=== PATIENT | female | born 1985 | race Caucasian/White ===

== ENCOUNTER 2022-07-24 12:11 | Emergency (ER) | payer OTHER ==
[~2022-07-24] VITALS: Ht 157.5 cm; Wt 59.1 kg
[2022-07-24] MEDS ORDERED: SODIUM CHLORIDE 0.9% 1,000 ML IV ONE (12:45)
[2022-07-24 12:58] LABS: BASOPHILS % (AUTO) 0.7 % (0.0-2.0); EOSINOPHILS % (AUTO) 3.6 % (1.0-6.0); HEMATOCRIT 40.7 % (36-46); HEMOGLOBIN 13.3 g/dL (12.0-16.0); LYMPHOCYTES # (AUTO) 1.6 K/uL (1.0-4.8); LYMPHOCYTES % (AUTO) 34.5 % (22.0-44.0); MEAN CORPUSCULAR HEMOGLOBIN 31.3 pg (26.0-34.0); MEAN CORPUSCULAR HGB CONC 32.8 G/dL (31.0-37.0); MEAN CORPUSCULAR VOLUME 96 fL (80-100); MONOCYTES # (AUTO) 0.3 K/uL (0.1-1.0); MONOCYTES % (AUTO) 6.4 % (2.0-9.0); NEUTROPHILS # (AUTO) 2.5 K/uL (1.8-7.7); NEUTROPHILS % (AUTO) 54.8 % (40.0-70.0); PLATELET COUNT (AUTO) 182 K/uL (150-450); RED BLOOD CELL COUNT(AUTO) 4.27 MIL/uL (4.00-5.20); RED CELL DISTRIBUTION WIDTH 12.8 % (11.5-14.5)
[2022-07-24 13:15] LABS: ANION GAP 4 mmol/L (8-16); CALCIUM, TOTAL 8.9 mg/dL (8.8-10.5); CARBON DIOXIDE 29 mmol/L (22-29); CHLORIDE 105 mmol/L (98-107); CREATININE 0.68 mg/dL (0.60-1.30); GLUCOSE,RANDOM 118 mg/dL (70-110); POTASSIUM 3.4 mmol/L (3.5-5.1); SODIUM SERUM 138 mmol/L (136-145); UREA NITROGEN, BLOOD 9 mg/dL (7-18)
[2022-07-24 13:21] LABS: ALANINE AMINOTRANSFERASE 17 U/L (12-78); ALBUMIN 3.2 g/dL (3.4-5.0); ALKALINE PHOSPHATASE 63 U/L (46-116); ASPARTATE AMINOTRANSFERASE 15 U/L (15-37); BILIRUBIN,TOTAL 0.4 mg/dL (0.1-1.0); TOTAL PROTEIN, SERUM 6.9 g/dL (6.4-8.2)
[2022-07-24 13:22] LABS: GLOMERULAR FILTR. RATE CALC > 60 mL/min (>60)
[2022-07-24 14:21] LABS: COVID AG,FIA SOURCE NASAL SWAB
[2022-07-24 14:52] LABS: INFLUENZA TYPE A NEGATIVE FOR TYPE A (NEGATIVE); INFLUENZA TYPE B NEGATIVE FOR TYPE B (NEGATIVE)
[2022-07-24 15:39] VITALS: BP 114/62
== END 2022-07-24 16:05 | disposition home or self-care (01) ==
LOC: EMS 12:13
DX: B34.9 Viral infection, unspecified (principal); E86.0 Dehydration; I95.9 Hypotension, unspecified; Z20.822 Contact with and (suspected) exposure to COVID-19
CPT/HCPCS: 99285; 96360; 71045; 87426; 80053; 84484; 85025; 87804; 36415; 93005; J7030

== ENCOUNTER 2023-09-08 12:29 | Emergency (ER) | payer OTHER ==
[~2023-09-08] VITALS: Ht 162.6 cm; Wt 75.0 kg
[2023-09-08 12:40] VITALS: BP 136/84; PULSE 96; RESP 18; TEMP 100.4
[2023-09-08 12:59] LABS: COVID AG,FIA SOURCE NASAL SWAB
[2023-09-08 13:17] LABS: SARS-COV2 (COVID) ANTIGEN,FIA Negative (Negative)
[2023-09-08 13:18] LABS: INFLUENZA TYPE B NEGATIVE FOR TYPE B (NEGATIVE)
[2023-09-08] MEDS: ACETAMINOPHEN 500 MG TABLET PO ONE (13:18)
[2023-09-08] MEDS: GuaiFENesin/D-METHORPHAN [SUGAR-FREE] 200-20MG/10 ML SYRUP UDCUP PO ONE (13:18)
[2023-09-08] MEDS: IBUPROFEN 600 MG TABLET PO ONE (13:18)
[2023-09-08 13:24] LABS: INFLUENZA TYPE A POSITIVE FOR TYPE A (NEGATIVE)
[2023-09-08] MEDS: KETOROLAC TROMETHAMINE 60 MG/2 ML VIAL IM ONE (14:51)
[2023-09-08] MEDS: ACETAMINOPHEN/CODEINE 300-30 MG TABLET PO ONE (14:52)
[2023-09-08 15:15] LABS: BASOPHILS % (AUTO) 0.6 % (0.0-2.0); EOSINOPHILS % (AUTO) 4.4 % (1.0-6.0); HEMATOCRIT 40.2 % (36-46); HEMOGLOBIN 13.3 g/dL (12.0-16.0); LYMPHOCYTES # (AUTO) 0.4 K/uL (1.0-4.8); LYMPHOCYTES % (AUTO) 9.8 % (22.0-44.0); MEAN CORPUSCULAR HEMOGLOBIN 31.6 pg (26.0-34.0); MEAN CORPUSCULAR HGB CONC 33.2 G/dL (31.0-37.0); MEAN CORPUSCULAR VOLUME 95 fL (80-100); MONOCYTES # (AUTO) 0.5 K/uL (0.1-1.0); MONOCYTES % (AUTO) 13.1 % (2.0-9.0); NEUTROPHILS # (AUTO) 2.6 K/uL (1.8-7.7); NEUTROPHILS % (AUTO) 72.1 % (40.0-70.0); PLATELET COUNT (AUTO) 184 K/uL (150-450); RED BLOOD CELL COUNT(AUTO) 4.21 MIL/uL (4.00-5.20); RED CELL DISTRIBUTION WIDTH 13.4 % (11.5-14.5); WHITE BLOOD COUNT (AUTO) 3.6 K/uL (4.5-11.0)
[2023-09-08 15:30] LABS: CARBON DIOXIDE 25 mmol/L (22-29); CHLORIDE 103 mmol/L (98-107); POTASSIUM 3.3 mmol/L (3.5-5.1); SODIUM SERUM 139 mmol/L (136-145)
[2023-09-08 15:31] LABS: ANION GAP 11 mmol/L (8-16); CALCIUM, TOTAL 8.8 mg/dL (8.8-10.5); CREATININE 0.64 mg/dL (0.60-1.30); GLOMERULAR FILTR. RATE CALC > 60 mL/min (>60); GLUCOSE,RANDOM 95 mg/dL (70-110); UREA NITROGEN, BLOOD 6 mg/dL (7-18)
[2023-09-08 15:35] LABS: TROPONIN I-HIGH SENSITIVITY 5 ng/L (<51)
[2023-09-08 15:37] LABS: ALANINE AMINOTRANSFERASE 26 U/L (12-78); ALBUMIN 3.7 g/dL (3.4-5.0); ALKALINE PHOSPHATASE 58 U/L (46-116); ASPARTATE AMINOTRANSFERASE 22 U/L (15-37); BILIRUBIN,TOTAL 0.3 mg/dL (0.1-1.0); TOTAL PROTEIN, SERUM 7.2 g/dL (6.4-8.2)
[2023-09-08] MEDS ORDERED: IBUP-1554 PO (15:49)
[2023-09-08] MEDS ORDERED: GUAIFDM PO (15:49)
[2023-09-08] MEDS ORDERED: ACET-2080 PO (15:49)
== END 2023-09-08 15:58 | disposition home or self-care (01) ==
LOC: EMS 12:47
DX: J10.1 Influenza due to other identified influenza virus with other respiratory manifestations (principal); Z20.822 Contact with and (suspected) exposure to COVID-19
CPT/HCPCS: 99284; 87426; 80053; 84484; 85025; 87804; 36415; 96372; J1885

== ENCOUNTER 2024-07-18 13:31 | Emergency (ER) | payer OTHER ==
[~2024-07-18] VITALS: Ht 157.5 cm; Wt 70.5 kg
[~2024-07-18 13:31] MED LIST: ACET-2080 PO; GUAIFDM PO; IBUP-1554 PO
[2024-07-18 13:48] VITALS: TEMP 98.8
[2024-07-18] MEDS ORDERED: MONT-40 PO (13:49)
[2024-07-18] MEDS: KETOROLAC TROMETHAMINE 30 MG/ML VIAL IM ONE (18:42)
[2024-07-18] MEDS ORDERED: AMOX250C4 PO (18:46)
[2024-07-18] MEDS: TraMADol HCL 50 MG TABLET PO ONE (19:02)
[2024-07-18 19:23] VITALS: BP 106/63; PULSE 78; RESP 16; O2SAT 97
== END 2024-07-18 19:31 | disposition home or self-care (01) ==
LOC: EMS 13:31
DX: H92.02 Otalgia, left ear (principal); J45.909 Unspecified asthma, uncomplicated; Z85.038 Personal history of other malignant neoplasm of large intestine
CPT/HCPCS: 99283; 96372; J1885

== ENCOUNTER 2025-06-29 17:34 | Emergency (ER) | payer OTHER ==
[~2025-06-29] VITALS: Ht 160 cm; Wt 70.5 kg
[~2025-06-29 17:34] MED LIST changes: -ACET-2080 PO; +AMOX250C4 PO; -GUAIFDM PO; -IBUP-1554 PO
[2025-06-29 18:03] VITALS: BP 103/67; PULSE 78; RESP 20; TEMP 98.1; O2SAT 99
[2025-06-29] MEDS ORDERED: HYDR-3831 PO (20:26)
== END 2025-06-29 20:44 | disposition home or self-care (01) ==
LOC: EMS 17:34
DX: F41.9 Anxiety disorder, unspecified (principal); J45.909 Unspecified asthma, uncomplicated; M54.2 Cervicalgia; Z85.038 Personal history of other malignant neoplasm of large intestine; Z98.890 Other specified postprocedural states
CPT/HCPCS: 99283